=== PATIENT | female | born 1990 | race Caucasian/White ===

== ENCOUNTER 2016-10-08 17:24 | Observation (INO) | payer BC ==
[2016-10-08] MEDS: RHO(D) IMMUNE GLOBULIN 300 MCG DISP.SYRIN IM ONE (17:49)
[2016-10-08] MEDS: ACETAMINOPHEN 500 MG TABLET PO ONE (19:55)
[2016-10-08 21:59] LABS: Hematocrit 36.8 % (37.0-47.0); Hemoglobin 12.2 gm/dL (12.5-16.0); Mean Cell Volume 93.4 fl (78-100); Mean Corpuscular Hgb Conc 33.2 g/dl (32-36); Mean Platelet Volume 11.5 fl (6.0-9.5); Neutrophil # 10.3 K/mm3 (1.3-6.0); Neutrophil % 73.6 % (42-75.0); Platelet Count 312 K/mm3 (150-450); Red Blood Count 3.94 M/mm3 (4.2-5.4)
[2016-10-08] MEDS ORDERED: metFORMIN HCL 500 MG TABLET ONE (23:24)
[2016-10-08] MEDS: metFORMIN HCL 500 MG TABLET PO ONE (23:34)
[2016-10-08] MEDS: DEXTROSE 5%-LACTATED RINGERS 1,000 ML IV PRN (23:35)
[2016-10-09] MEDS: ACETAMINOPHEN 325 MG TABLET PO PRN (02:03)
[2016-10-09 06:06] LABS: Hematocrit 31.9 % (37.0-47.0); Hemoglobin 10.6 gm/dL (12.5-16.0); Mean Cell Volume 91.9 fl (78-100); Mean Corpuscular Hemoglobin 30.5 pg (27-31); Mean Corpuscular Hgb Conc 33.2 g/dl (32-36); Mean Platelet Volume 10.5 fl (6.0-9.5); Neutrophil # 8.5 K/mm3 (1.3-6.0); Neutrophil % 69.5 % (42-75.0); Platelet Count 256 K/mm3 (150-450); Red Blood Count 3.47 M/mm3 (4.2-5.4); White Blood Count 12.3 K/mm3 (4.0-10.5)
[2016-10-09 07:19] VITALS: BP 138/61
== END 2016-10-09 07:25 | disposition home or self-care (01) ==
LOC: OBCLINIC 17:24 → MERGE 22:20 → OB 22:20
PROVIDERS: ADMIT Obstetrics & Gynecology; ATTEND Obstetrics & Gynecology
DX: S70.02XA Contusion of left hip, initial encounter (principal); S30.0XXA Contusion of lower back and pelvis, initial encounter; O24.112 Pre-existing type 2 diabetes mellitus, in pregnancy, second trimester; W10.9XXA Fall (on) (from) unspecified stairs and steps, initial encounter; Y92.008 Other place in unspecified non-institutional (private) residence as the place of occurrence of the external cause; E66.01 Morbid (severe) obesity due to excess calories; Z68.25 Body mass index [BMI] 25.0-25.9, adult; Z3A.22 22 weeks gestation of pregnancy
CPT/HCPCS: 36415; 59025; 85025; 85460; G0378; J2790

== ENCOUNTER → 2016-10-08 | Emergency (ER) | payer BC ==
[2016-10-08 16:38] VITALS: BP 151/77
--- NOTE | 2016-10-08 17:34 | ERNOTE ---
Trauma/Assault HPI - Narrative Date of Service: 10/08/16 - General Stated Complaint: 21 WEEKS . FALL DOWNSTAIRS Time Seen by Provider: 10/08/16 17:16 Source: patient - Immun/Allergies/Home Medications Immunizations: IMMUNIZATION HX Immunizations Up to Date Yes History of Influenza Vaccine Yes Hx Pneumococcal Vaccination Yes Allergies/Adverse Reactions: Allergies No Known Allergies Allergy (Verified 10/08/16 16:38) Home Medications: HOME MEDICATIONS Metformin HCl [Metformin HCl ER] 1,000 mg PO DAILY 07/26/16 [Last Taken Unknown] Ign405/Iron Fumarate/FA/Dss [ 19 Tablet] 1 each PO DAILY 07/26/16 [Last Taken Unknown] Insulin Glargine,Hum.rec.anlog [Lantus] 20 units SC HS 10/08/16 [Last Taken Unknown] - Pain Pain Score #1 Pain Score: 4 - History of Present Illness Date (Duration): 10/08/16 Location Occurred: Reports: home Pain Location: Reports: other - left lower back area, mid thoracic area Method of Injury: Reports: other - patient states she slipped on icey last step Severity: moderate Modifying Factors - (Improves): Reports: rest Modifying Factors - (Worsens): Reports: movement Loss of Consciousness: Reports: no loss of consciousness Associated Symptoms - Trauma: Reports: headache. Denies: confusion, dizziness, lightheadedness, seizures, slurred speech, trouble walking, vision changes, neck pain, chest pain, shortness of breath, abdominal pain, nausea, vomiting Review of Systems - Review of Systems Constitutional: Absent: recent illness, fever, chills, diaphoresis, weakness, fatigue, malaise EYE: Present: no symptoms reported. Absent: blurred vision, double vision ENT: Present: no symptoms reported Respiratory: Present: no symptoms reported. Absent: shortness of breath, cough Cardiology: Present: no symptoms reported. Absent: chest pain, palpitations, syncope, edema Gastrointestinal/Abdominal: Present: no symptoms reported. Absent: nausea, vomiting, abdominal pain Genitourinary: Present: no symptoms reported Musculoskeletal: Present: no symptoms reported Skin: Absent: rash Neurological: Present: no symptoms reported - Patient's Past Medical History Patient History - Medical: Diabetes Type 2 Patient History - Cancer: No Hx of Cancer Patient History - Surgical Procedures: Tubal Ligation, Other - Social History Smoking Status: Never smoker Physical Exam - Physical Exam General Appearance: Present: wd/wn, alert, no apparent distress Eye Exam: Normal inspection: bilateral, PERRL: bilateral Ears, Nose, Throat: Present: hearing grossly normal, normal pharynx. Absent: dry mucous membranes Neck: Present: normal inspection, nontender, supple, full range of motion Respiratory: Present: no respiratory distress, normal breath sounds, no accessory muscle use, chest nontender, lungs clear. Absent: chest tenderness Cardiovascular/Chest: Present: regular rate, rhythm, no murmur, normal peripheral pulses Peripheral Pulses: N=norm/S=strong/W=weak/B=bound/A=absent: Radial (R): Strong, Radial (L): Strong, Dorsalis-pedis (R): Strong, Dorsalis-pedis (L): Strong Gastrointestinal/Abdominal: Present: normal bowel sounds, nontender, nondistended, soft, no organomegaly Back Exam: Present: normal inspection, normal range of motion, CVA tenderness (L ), vertebral tenderness - mid thoracic area Extremity Exam: Present: normal inspection, non-tender, no edema, normal range of motion Neurological Exam: Present: oriented, normal mood/affect, no motor/sensory deficits Skin Exam: Present: normal color, warm/dry. Absent: diaphoresis, cyanosis ED Progress - Vital Signs Patient's Vital Signs:: I have reviewed the patient's vital signs. Vital Signs: Vital Signs 10/08/16 16:35 Temperature 36.7 C Pulse Rate 100 Respiratory 14 Rate Blood Pressure 151/77 O2 Sat by Pulse 99 Oximetry - Progress/Reassessment Chief Complaint: Fall Progress Note-Subjective: 10/08/16 17:34 patient examined and due to did not want to perform CT/xray. patient agrees to decision and wants to get upstairs to OB floor and fetus monitored. No abnormalities noted on full examination. Departure Clinical Impression: Lower back pain Qualifiers: Chronicity: acute Back pain laterality: left Sciatica presence: without sciatica Qualified Code(s): M54.5 - Low back pain Back pain Qualifiers: Back pain location: thoracic back pain Chronicity: acute Back pain laterality: midline Qualified Code(s): M54.6 - Pain in thoracic spine Qualifiers: Weeks of gestation: 22 weeks Qualified Code(s): Z3A.22 - 22 weeks gestation of - Departure Disposition: [facility] Condition: Good Instructions: Back Pain, Adult, [id number] Referrals: Bobby Murrell DO [Primary Care Provider] -
== END | disposition home or self-care (01) ==
LOC: ER 16:23 → MERGE 16:23
DX: M54.5 Low back pain (principal); M54.6 Pain in thoracic spine; Z3A.22 22 weeks gestation of pregnancy; W00.1XXA Fall from stairs and steps due to ice and snow, initial encounter; E11.9 Type 2 diabetes mellitus without complications

== ENCOUNTER 2016-11-15 12:51 | Emergency (ER) | payer BC ==
--- OUTSIDE RECORDS SUMMARY | 2016-11-15 13:32 | XMS REPORT | Continuity of Care Document ---
:1990 Author Organization [facility] ([facility]) Address [address] [place] [address] Phone [phone] Care Team Providers Name Role Phone Bobby Murrell Primary Care Provider [phone] Source Comments This disclosure is being made pursuant to the Care Everywhere program, applicable federal and state laws, and may not contain all informaitonavailable regarding this patient.[facility] ([facility]) Active Allergies and Adverse Reactions No Known Allergies Current Medications Prescription Sig. Disp. Refills Start Date End Date Status albuterol 90 Use 2 Puffs by Active mcg/Actuation inhalation every 6 inhaler hours as needed Take 2 tablets by Active multivitamin with mouth daily. 2 minerals PO gummies acetaminophen 325 mg Take 325 mg by Active tablet mouth every 4 hours as needed. traMADol 50 mg 12/08/2015 Active tablet oxyCODONE-acetaminop Take 1 tablet by 30 tablet 0 12/09/2015 Active hen 5-325 mg per mouth every 4 hours tablet as needed for pain. Do Not exceed 4000 mg of acetaminophen per 24 hours.. ibuprofen 600 mg Take 1 tablet (600 30 tablet 3 12/09/2015 Active tablet mg total) by mouth every 6 hours as needed for pain. letrozole 2.5 mg Take 2 tablets (5 10 tablet 2 02/09/2016 Active tablet mg total) by mouth daily. clomiPHENE 50 mg Take 2 tablets (100 10 tablet 3 05/02/2016 Active tablet mg total) by mouth daily. Take on days 3 through 7 of cycle. amoxicillin 500 mg 1 capsule 3 times 06/16/2016 Active capsule daily. nitrofurantoin Take 1 capsule (100 10 capsule 0 06/22/2016 Active (MACROBID) 100 mg mg total) by mouth capsule 2 times daily. Active Problems Problem Noted Date with history of infertility in first trimester 06/21/2016 Difficult airway for intubation 12/09/2015 Ectopic , tubal 12/09/2015 Miscarriage 11/24/2015 Oxygen desaturation 07/02/2015 Obesity, Class III, BMI 40-49.9 (morbid obesity) 12/31/2014 Female infertility of unspecified origin 12/31/2014 Resolved Problems Problem Noted Date Resolved Date Abnormal uterine bleeding (AUB) 06/02/2015 11/24/2015 Endometrial polyp 12/31/2014 11/24/2015 Immunizations Name Dates Previously Given Next Due Rho (D) Immune Globulin, IM (Rhogam) 11/26/2015 Social History Tobacco Use Types Packs/Day Years Used Date Never Smoker Smokeless Tobacco: Never Used Alcohol Use Drinks/Week oz/Week Comments Yes Social Last Filed Vital Signs Vital Sign Reading Time Taken Blood Pressure 127/84 06/21/2016 1:18 PM CDT Pulse 103 06/21/2016 1:18 PM CDT Temperature 37.3 C (99.1 F) 06/21/2016 1:18 PM CDT Respiratory Rate 16 12/09/2015 8:45 PM CDT Height 1.54 m (5' 0.63") 12/27/2015 11:26 AM CDT Weight 103.6 kg (228 lb 6.3 oz) 06/21/2016 1:18 PM CDT Body Mass Index 43.68 06/21/2016 1:18 PM CDT Oxygen Saturation 92% 12/09/2015 7:30 PM CDT Plan of Care Health Maintenance Due Date Last Done Comments Hepatitis B Vaccine (1 of 3 - Primary Series) 1990 HPV Vaccine (1 of 3 - Female/Unknown 3 Dose Series) 2000 Tdap Vaccine 2000 Cervical Cancer Screening 2007 MMR Vaccine 2007 Td Vaccine 2007 Varicella Vaccine (1 of 2 - Adult - No Evidence of 2007 Immunity) Influenza Vaccine: Seasonal (#1) 04/24/2016 Lipid Disorder Screening 06/02/2020 06/02/2015 Results from Last 3 Months Not on file
--- NOTE | 2016-11-15 13:37 | ERNOTE ---
Medical Problem HPI - Narrative Date of Service: 11/15/16 - General Chief Complaint: Nausea/Vomiting Time Seen by Provider: 11/15/16 13:20 Source: patient Exam Limitations: no limitations - Immun/Allergies/Home Medications Immunizations: IMMUNIZATION HX Immunizations Up to Date Yes History of Influenza Vaccine Yes Hx Pneumococcal Vaccination Yes Allergies/Adverse Reactions: Allergies No Known Allergies Allergy (Verified 11/15/16 13:03) Home Medications: HOME MEDICATIONS Metformin HCl [Metformin HCl ER] 1,000 mg PO BID 07/26/16 [Last Taken 10/08/16 10:00] Vpi773/Iron Fumarate/FA/Dss [ 19 Tablet] 1 each PO DAILY 07/26/16 [Last Taken 10/08/16 09:00] Ferrous Sulfate [Iron] 325 mg PO DAILY 10/08/16 [Last Taken 10/07/16 2100] Insulin Glargine,Hum.rec.anlog [Lantus] 20 units SC HS 10/08/16 [Last Taken 19:35] - History of Present History Narrative: Pt. comes in with intermittent fever, nausea, vomiting, sinus congestion, PND, rhinorrhea, and sore throat for three days. Pt. states that she has been able to hold down some fluids but has not eaten much. Pt. is concerned as she is 27 weeks with oligohydramnios. Pt. denies any prehospital treatment. Review of Systems - Review of Systems Constitutional: Present: fever, fatigue, malaise. Absent: chills, diaphoresis, weakness, decreased activity level EYE: Present: no symptoms reported ENT: Present: nose pain, nose congestion, nasal drainage Respiratory: Present: cough. Absent: shortness of breath, wheezing Cardiology: Absent: chest pain, palpitations, edema Gastrointestinal/Abdominal: Present: nausea, vomiting. Absent: diarrhea, abdominal pain Musculoskeletal: Present: no symptoms reported. Absent: back pain, joint pain Skin: Present: no symptoms reported Neurological: Present: headache. Absent: dizziness/light-headedness, numbness, tingling All Other Systems: All systems neg except as marked - Patient's Past Medical History Patient History - Medical: No pertinent hx Patient History - Cardiac/Respiratory: No pertinent hx Patient History - Cancer: No Hx of Cancer Patient History - Surgical Procedures: D & C, Other - Social History Smoking Status: Never smoker Have you smoked in the past 12 months: No - Immunizations Immunizations Up to Date: Yes Hx Pneumococcal Vaccination: Yes History of Influenza Vaccine: Yes Physical Exam - Physical Exam General Appearance: Present: wd/wn, alert, no apparent distress Eye Exam: Normal inspection: bilateral, PERRL: bilateral, EOMI: bilateral Ears, Nose, Throat: Present: nasal congestion, sinus pain/drainage, pharyngeal erythema. Absent: abnormal TM (R), abnormal TM (L) Neck: Present: normal inspection, nontender. Absent: lymphadenopathy (R), lymphadenopathy (L) Respiratory: Present: no respiratory distress, normal breath sounds, no accessory muscle use, chest nontender, lungs clear Cardiovascular/Chest: Present: regular rate, rhythm, no murmur, normal peripheral pulses Gastrointestinal/Abdominal: Present: normal bowel sounds, nontender, nondistended, soft, no organomegaly Back Exam: Present: normal inspection, normal range of motion, no CVA tenderness , no vertebral tenderness Extremity Exam: Present: normal inspection, non-tender, no edema, normal range of motion Neurological Exam: Present: alert, oriented, normal mood/affect, no motor/ sensory deficits Skin Exam: Present: warm/dry, pallor. Absent: skin rash ED Progress - Date and Time Seen: Date and Time: 11/15/16 14:[address] menjivar and as pt. is doing well enough to hold down fluids will send pt. home to follow up with him next week. Will recommend pt. start leydi and vitamin B6 for nausea. - Results and Orders Patient's Lab Results:: I have reviewed the patient's lab results. - Vital Signs Patient's Vital Signs:: I have reviewed the patient's vital signs. Vital Signs: Vital Signs 11/15/16 13:00 Temperature 36.5 C Pulse Rate 119 H Respiratory 16 Rate Blood Pressure 143/85 O2 Sat by Pulse 95 Oximetry - Progress/Reassessment Chief Complaint: Nausea/Vomiting Progress:: Unchanged Departure - Departure Clinical Impression: Acute gastroenteritis Disposition: Home self-care Condition: Good Instructions: Viral Gastroenteritis, Adult, [id number] Additional Instructions: Please take Leydi root and 25 mg of B6 every eight hours and if this is not effective may use unisom 12.5 mg in addition to the vitamin B6 and leydi root.
[2016-11-15 13:55] LABS: Hematocrit 34.4 % (37.0-47.0); Hemoglobin 11.4 gm/dL (12.5-16.0); Mean Cell Volume 91.2 fl (78-100); Mean Corpuscular Hemoglobin 30.2 pg (27-31); Mean Corpuscular Hgb Conc 33.1 g/dl (32-36); Mean Platelet Volume 10.3 fl (6.0-9.5); Neutrophil # 10.2 K/mm3 (1.3-6.0); Neutrophil % 79.4 % (42-75.0); Platelet Count 310 K/mm3 (150-450); Red Blood Count 3.77 M/mm3 (4.2-5.4); Red Cell Distribution Width 13.3 % (11.5-14.0); White Blood Count 12.8 K/mm3 (4.0-10.5)
[2016-11-15 13:59] LABS: Urine Bilirubin Negative (NEGATIVE); Urine Blood Negative /ul (NEGATIVE); Urine Ketone Negative (NEGATIVE); Urine Nitrite Negative (NEGATIVE); Urine Protein Negative (NEGATIVE); Urine Urobilinogen Normal (NORMAL); Urine pH 7.5 pH (5.0-7.0)
[2016-11-15 14:03] LABS: Albumin * 2.5 gm/dl (3.4-5.0); Anion Gap 15.2 mmol/L (6.8-13.8); BUN/Creatinine Ratio 7.1 (9.0-21.6); Bilirubin, Total 0.3 mg/dL (0.0-1.1); Ca. Corrected For Albumin 9.7 mg/dL (8.4-10.2); Calcium * 8.8 mg/dL (7.9-10.9); Carbon Dioxide 25.6 mmol/L (24-32.6); Potassium 3.8 mmol/L (3.4-4.6)
[2016-11-15 14:12] LABS: Urine Appearance Clear; Urine Bacteria TRACE; Urine Color Yellow; Urine RBC None Seen /hpf (0-5); Urine WBC None Seen /hpf (0-5)
[2016-11-15] MEDS ORDERED: NORMAL SALINE 1,000 ML IV ONE (14:27)
[2016-11-15 14:45] VITALS: BP 130/70
== END 2016-11-15 16:14 | disposition home or self-care (01) ==
LOC: ER 12:51
DX: K52.9 Noninfective gastroenteritis and colitis, unspecified (principal); O41.02X0 Oligohydramnios, second trimester, not applicable or unspecified; Z3A.27 27 weeks gestation of pregnancy

== ENCOUNTER 2017-01-15 08:55 | Inpatient (IN) | payer BC ==
--- OUTSIDE RECORDS SUMMARY | 2017-01-15 09:00 | XMS REPORT | Continuity of Care Document ---
:1990 Author Organization [facility] ([facility]) [place] [address] Phone [phone] Care Team Providers Name Role Phone Bobby Murrell Primary Care Provider [phone] Source Comments This disclosure is being made pursuant to the Care Everywhere program, applicable federal and state laws, and may not contain all informaitonavailable regarding this patient.[facility] ([facility]) Active Allergies and Adverse Reactions No Known Allergies Current Medications Prescription Sig. Disp. Refills Start Date End Date Status albuterol 90 Use 2 Puffs by Active mcg/Actuation inhaler inhalation every 6 hours as needed multivitamin Take 2 tablets by Active with minerals PO mouth daily. 2 gummies ferrous sulfate 325 mg Take 325 mg by mouth Active (65 mg iron) tablet daily. SUPPLY FREESTYLE LITE Active test strips metFORMIN 1,000 mg Take 1,000 mg by Active tablet mouth 2 times daily with meals. Active Problems Problem Noted Date with history of infertility in first trimester 06/21/2016 Difficult airway for intubation 12/09/2015 Ectopic , tubal 12/09/2015 Miscarriage 11/24/2015 Oxygen desaturation 07/02/2015 Obesity, Class III, BMI 40-49.9 (morbid obesity) 12/31/2014 Female infertility of unspecified origin 12/31/2014 Currently Estimated Date of Delivery Comments Yes 02/13/2017 Based on Ultrasound Resolved Problems Problem Noted Date Resolved Date Abnormal uterine bleeding (AUB) 06/02/2015 11/24/2015 Endometrial polyp 12/31/2014 11/24/2015 Most Recent Encounters Date Type Specialty Providers Description 12/14/2016 Office Visit Maternal Juana Tesfaye, Chief Comp: Patient Medicine DO Reported Reason For Tammy Knutson Visit [facility] 12/14/2016 Hospital Encounter Obstetrics Juana Tesfaye, Dx: Abnormal DO ultrasonic finding on screening of mother 12/14/2016 Office Visit Maternal Juana Tesfaye Dx: Obesity, Class Medicine DO III, BMI 40-49.9 (morbid obesity) (Primary Dx) 12/07/2016 Hospital Encounter Patient Services 12/07/2016 Telephone Obstetrics Nicol Milner, Chief Comp: MD Consultation 12/07/2016 Telephone Maternal Marisol Nava Jackelin, Dx: Abnormal Medicine RN ultrasonic finding on screening of mother (Primary Dx) Immunizations Name Dates Previously Given Next Due Rho (D) Immune Globulin, IM (Rhogam) 11/26/2015 Social History Tobacco Use Types Packs/Day Years Used Date Former Smoker Smokeless Tobacco: Never Used Alcohol Use Drinks/Week oz/Week Comments No Last Filed Vital Signs Vital Sign Reading Time Taken Blood Pressure 128/70 12/14/2016 1:49 PM CDT Pulse 94 12/14/2016 1:49 PM CDT Temperature 37.2 C (99 F) 12/14/2016 1:49 PM CDT Respiratory Rate 16 12/09/2015 8:45 PM CDT Height 1.562 m (5' 1.5") 12/14/2016 1:49 PM CDT Weight 114.5 kg (252 lb 6.8 oz) 12/14/2016 1:49 PM CDT Body Mass Index 46.93 12/14/2016 1:49 PM CDT Oxygen Saturation 92% 12/09/2015 7:30 PM CDT Plan of Care Health Maintenance Due Date Last Done Comments Hepatitis B Vaccine (1 of 3 - Primary Series) 1989 Tdap Vaccine 2000 Cervical Cancer Screening 2007 MMR Vaccine 2007 Td Vaccine 2007 Varicella Vaccine (1 of 2 - Adult - No Evidence of 2007 Immunity) Pneumococcal Vaccine (1 of 1 - PPSV23) 2008 Influenza Vaccine: Seasonal (Season Ended) 2017 Lipid Disorder Screening 06/02/2020 06/02/2015 Results from Last 3 Months BLASTER HELPER/ DIAGNOSIS ULTRASOUND (12/14/2016 1:46 PM) Narrative Obstetric Ultrasound Report Detailed Survey Referral from: Dr. Bobby Murrell [place] [address] Department of Obstetrics & Gynecology [place], [id number] [address] [place], [place] [address]kins [facility] [place], [id number] OB Clinic IVF/ Endocrine PATIENT INFORMATION: Name: DYANA DARNELL#: [id number] Age:26 y/oExam Date: 12/14/2016 :1990Visit #: 7 LMP:04/29/2016Location: Diagnosis & Treatment Unit # Fetuses: 1 INDICATION:Oligo and downward richelle of EFW noted locally. Check growth and anatomy. DATING: Assigned GA GA by LMPGA by US(US)URSULA 32 5/7 wks 29 0/7 wks 31 2/7 wks02/13/17 BIOMETRY: BPD: 66.5 mm26 6/7 wksHC:264.9 mm 28 6/7 wks(<3%) (<3%) Femur: 59.6 mm31 0/7 wksAC:253.7 mm 29 4/7 wks(14%) (43%) EFW: 1439 gms3 lbs 3 oz (24%) Lat Ventricles: 5.2 mm Cisterna Magna: 4.63 mm Nasal Bone: Present-9.9 mm Heart Rate: 160 bpm FL/AC:0.23 HL/BPD: 0.75 FL/BPD: 0.89 Humerus:50.5 mm29 4 (22%) PRESENTATION/CORD/PLACENTA/FLUID/CERVIX: Presentation: Cephalic Umbilical Cord: 3 Vessel Cord.Suboptimal visualization of insertion into the placenta. Placenta: Anterior.There Is No Evidence Of Placenta Previa. Amniotic Fluid: Maximum Vertical Pocket=43 mm.Subjective AF Volume : Normal. (GTS=261 mm) ANATOMICAL SURVEY: Normal ------ Lateral Ventricles Cerebellum Cisterna Magna Profile Nose Lips Cervical Spine Thoracic Spine Lumbar Spine Sacrum Four Chamber ViewRVOT LVOT Cardiac [place] Cardiac Position Heart Rate StomachKidney - Left Kidney - Right Bladder Forearm - RightLower Leg - Left Lower Leg - RightFoot - Right Suboptimal Palate Aortic Arch Ductal ArchIVC SVC Diaphragm Ventral Wall Forearm - Left Hand - LeftHand - Right Foot - Left Abnormal -------- None identified TARGETED CARDIAC: Ductal Arch: Suboptimal IVC: Suboptimal SVC: Suboptimal COMPUTER SALESPERSON RETAIL FINDINGS: Ovaries:Left:Not Seen Right: Not Seen EFW Summary Table Exam DateFetus #EFW Percentile ------ - 24 % AMNIOTIC FLUID VOLUME: NORMALTotal SHELLY: 143 mm.Subjective AF Volume: Normal. Maximum Vertical Pocket:43 mm CERVIX: Visualized COMMENTS: I attest to having personally viewed the images and my comments and impression are as follows: The exam was limited by maternal obesity in . The exam was limited due to the late gestational age. IUP consistent with given URSULA. Some of the anatomy was suboptimally visualized due to late gestational age and maternal body habitus. Within the limits of ultrasound, no structural anomalies were seen. Appropriate fluid. The BPD and HC measure < 3% however is within 2 standard deviations from the mean. Consultation: Thank you for allowing us to care for your patient, Dyana Chacon. As you know, she is a 26 y.o. currently at 31w2d gestation.She has been referred due to Type II diabetes mellitus, "down-trending growth" and oligohydramnios.Her is otherwise uncomplicated. She had low risk serum screening.She presents to the Diagnosis and Treatment Unit at the [facility] today for detailed anatomic survey and MFM consultation. Today's ultrasound confirms a single viable intrauterine consistent with previously assigned gestational age. The growth and amniotic fluid volume are normal. There are no structural abnormalities noted within the limits of ultrasound. The ultrasound findings that are noted above were discussed with the patient. We then spent an additional 15 minutes in face to face time with the patient, of which more than 50% of that time was in counseling and/or coordination of care. The issues we discussed are as follows: The measurements are within normal limits. Both the HC and BPD measure <3%, but are not >3 standard deviations from the mean. We counseled the patient that this is considered to be within the range of normal variation and is not associated with adverse outcome. The is complicated by Type II DM. The patient is currently managed by Dr. Murrell, her OB in [place]. Her hemoglobin A1C in the beginning of was 5.7%. She is currently taking Metformin 1000 mg BID and NPH 48 units qhs. She reports fasting blood sugars are typically in the 70s-80s and one hour postprandial blood sugars are 110s-130s. We had a discussion regarding the importance of diabetic management in and we reviewed the complications that can develop in pregnancies of patients with Type II diabetes. There is increased risk for polyhydramnios, hypertensive disorders, altered growth, delivery, complications and stillbirth. We reviewed that the risk for developing hypertensive disorders of , including preeclampsia, is increased in patients with pre- exisiting diabetes. It will be important to monitor blood pressure and to screen for proteinuria as the progresses. We explained growth can be accelerated or delayed depending on the presence or absence of maternal vascular disease as well as maternal glycemic control; therefore, we recommend tight glycemic control and serial growth ultrasounds every 4 weeks, which can be done locally. Because of the increased risk of stillbirth, we recommend testing with weekly non-stress tests beginning at 32 weeks and plan for delivery in the 39th week of gestation.If the has suspected macrosomia, which can still happen despite good glycemic control, there is an increased risk of maternal and trauma.Elective section for estimated weight in excess of 4500 grams at the time of delivery should be offered due to increased risk for failed vaginal delivery and shoulder dystocia. We also discussed potential complications including hypoglycemia, seizures and respiratory distress syndrome, which may necessitate admission to the NICU. The patient currently demonstrates reasonable glycemic control. We reviewed that blood sugar goals include fasting<95 and one hour postprandial <140. Regardless of dietary modification, it is not uncommon for insulin requirements to increase as progresses due to increasing insulin resistance. The patient was encouraged to maintain weekly contact with her provider for blood sugar review and insulin adjustments. It was a pleasure seeing your patient in our Diagnosis and Treatment unit today. Thank you for allowing us to participate in her care. The patient was scheduled for follow up ultrasound in 4 weeks, which can be done locally. Please do not hesitate to call our clinic with any questions or concerns. Attending Staff Teaching Statement: I have interviewed the patient, reviewed her records and ultrasound images, and confirmed the pertinent findings.I have discussed the case with the fellow and agree with the findings and plan as documented. Dr. Juana Tesfaye MD ([id number]) Dr. Loretta Shirley MD [employer] Ten[employer]: Maryellen Bangura RDMS,RVT Procedure Note Sid, Incoming Imaging Results - SunDec 18, 2016 4:49 PM CDT Obstetric Ultrasound Report Detailed Survey Referral from: Dr. Bobby Murrell [facility] [address] Department of Obstetrics &[place] [address] [address] [employer] [place], [place] OB Clinic IVF/ Endocrine PATIENT INFORMATION: Name: DYANA CHACON MR#: [id number] Age: 26 y/o Exam Date: 12/14/2016 : 1990 Visit #: 7 LMP: 04/29/2016 Location: Diagnosis & Treatment Unit # Fetuses: 1 INDICATION: Oligo and downward richelle of EFW noted locally. Check growth and anatomy. DATING: Assigned GA GA by LMP GA by US (US) URSULA 32 5/7 wks 29 0/7 wks 31 2/7 wks 02/13/17 BIOMETRY: BPD: 66.5 mm 26 6/7 wks HC: 264.9 mm 28 6/7 wks(<3%) (<3%) Femur: 59.6 mm 31 0/7 wks AC: 253.7 mm 29 4/7 wks(14%) (43%) EFW: 1439 gms 3 lbs 3 oz (24%) Lat Ventricles: 5.2 mm Cisterna Magna: 4.63 mm Nasal Bone: Present-9.9 mm Heart Rate: 160 bpm FL/AC: 0.23 HL/BPD: 0.75 FL/BPD: 0.89 Humerus: 50.5 mm 294 (22%) PRESENTATION/CORD/PLACENTA/FLUID/CERVIX: Presentation: Cephalic Umbilical Cord: 3 Vessel Cord. Suboptimal visualization of insertion into the placenta. Placenta: Anterior. There Is No Evidence Of Placenta Previa. Amniotic Fluid: Maximum Vertical Pocket=43 mm. Subjective AFVolume: Normal. (DEZ=400 mm) ANATOMICAL SURVEY: Normal ------ Lateral Ventricles Cerebellum Cisterna Magna Profile Nose Lips Cervical Spine Thoracic Spine Lumbar Spine Sacrum Four Chamber View RVOT LVOT Cardiac [place] Cardiac Position Heart Rate Stomach Kidney - Left Kidney - Right Bladder Forearm - Right Lower Leg - Left Lower Leg - Right Foot - Right Suboptimal Palate Aortic Arch Ductal Arch IVC SVC Diaphragm Ventral Wall Forearm - Left Hand - Left Hand - Right Foot - Left Abnormal -------- None identified TARGETED CARDIAC: Ductal Arch: Suboptimal IVC: Suboptimal SVC: Suboptimal COMPUTER SALESPERSON RETAIL FINDINGS: Ovaries: Left: Not Seen Right: Not Seen EFW Summary Table Exam Date Fetus # EFW Percentile --------- ------- ---- 12/14/16 1 1439 24 % AMNIOTIC FLUID VOLUME: NORMAL Total SHELLY: 143 mm. Subjective AF Volume: Normal. Maximum Vertical Pocket: 43 mm CERVIX: Visualized COMMENTS: I attest to having personally viewed the images and my comments and impression are as follows: The exam was limited by maternal obesity in . The exam was limited due to the late gestational age. IUP consistent with given URSULA. Some of the anatomy was suboptimally visualized due to late gestational age and maternal body habitus. Within the limits of ultrasound, no structural anomalies were seen. Appropriate fluid. The BPD and HC measure < 3% however is within 2 standard deviationsfrom the mean. Consultation: Thank you for allowing us to care for your patient, Dyana Chacon. As you know, she is a 26 y.o. currently at 31w2d gestation.She has been referred due to Type II diabetes mellitus, "down-trendingfetal growth" and oligohydramnios. Her is otherwise uncomplicated. She had low risk serum screening. She presents to the Diagnosis and Treatment Unit at the [facility] today for detailedanatomic survey and MFM consultation. Today's ultrasound confirms a single viable intrauterine consistent with previously assigned gestational age. The growth and amniotic fluid volume are normal. There are no structural abnormalities noted within the limits of ultrasound. The ultrasound findings that are noted above were discussed with the patient. We then spent an additional 15 minutes in face to face time with the patient, of which more than 50% of that time was in counseling and/or coordination of care. The issues we discussed are as follows: The measurements are within normal limits. Both the HC and BPD measure <3%, but are not >3 standard deviations from the mean. We counseled the patient that this is considered to be within the range of normal variation and is not associated with adverse outcome. The is complicated by Type II DM. The patient is currently managed by Dr. Murrell, her OB in [place]. Her hemoglobin A1C in the beginning of was 5.7%. She is currently taking Metformin 1000 mg BID and NPH 48 units qhs. She reports fasting blood sugars are typically in the 70s-80s and one hour postprandial blood sugars are 110s-130s. We had a discussion regarding the importance of diabetic management in and we reviewed the complications that can develop in pregnancies of patients with Type II diabetes. There is increased risk for polyhydramnios, hypertensive disorders, alteredfetal growth, delivery, complications and stillbirth. We reviewed that the risk for developing hypertensive disorders of , including preeclampsia, is increased in patients with pre- exisiting diabetes. It will be important to monitor blood pressure and to screen for proteinuria as the progresses. We explained growth can be accelerated or delayed depending on the presence or absence of maternal vascular disease as well as maternal glycemic control; therefore, we recommend tight glycemic control and serial growth ultrasounds every 4 weeks, which can be done locally. Because of the increased risk of stillbirth, we recommend testing with weekly non-stress tests beginning at 32 weeks and plan for delivery in the 39th week of gestation. If the has suspected macrosomia, which can still happen despite good glycemic control, there is an increased risk of maternal and trauma. Electivecesarean section for estimated weight in excess of 4500 grams at the time of delivery should be offered due to increased risk for failed vaginal delivery and shoulder dystocia. We also discussed potential complications including hypoglycemia, seizures and respiratory distress syndrome, which may necessitate admission to the NICU. The patient currently demonstrates reasonable glycemic control. We reviewed that blood sugar goals include fasting<95 and one hour postprandial <140. Regardless of dietary modification, it is not uncommon for insulin requirements to increase as progresses due to increasing insulin resistance. The patient was encouraged to maintain weekly contact with her provider for blood sugar review and insulin adjustments. It was a pleasure seeing your patient in our Diagnosis and Treatment unit today. Thank you for allowing us to participate in her care. The patient was scheduled for follow up ultrasound in 4 weeks, which can be done locally. Please do not hesitate to call our clinic with any questions or concerns. Attending Staff Teaching Statement: I have interviewed the patient, reviewed her records and ultrasound images, and confirmed the pertinent findings. I have discussed the case with the fellow and agree with the findings and plan as documented. Dr. Juana Tesfaye MD ([id number]) Dr. Loretta Shirley MD [employer] Ten[employer]: Maryellen Bangura RDMS,RVT
[2017-01-15] MEDS ORDERED: METOCLOPRAMIDE HCL 5 MG/ML VIAL IV PRN ×2 (11:21→19:39)
[2017-01-15] MEDS ORDERED: diphenhydrAMINE HCL 50 MG/ML VIAL IV ONE (11:21)
[2017-01-15] MEDS: RINGERS SOLUTION,LACTATED 1,000 ML IV PRN (11:29)
[2017-01-15 11:57] LABS: Random Urine Total Protein 23.3 mg/dL (0-12)
[2017-01-15 12:16] LABS: Hematocrit 33.6 % (37.0-47.0); Hemoglobin 11.2 gm/dL (12.5-16.0); Mean Cell Volume 90.3 fl (78-100); Mean Corpuscular Hemoglobin 30.1 pg (27-31); Mean Corpuscular Hgb Conc 33.3 g/dl (32-36); Mean Platelet Volume 10.6 fl (6.0-9.5); Neutrophil # 8.2 K/mm3 (1.3-6.0); Neutrophil % 72.9 % (42-75.0); Platelet Count 278 K/mm3 (150-450); Red Blood Count 3.72 M/mm3 (4.2-5.4); Red Cell Distribution Width 14.6 % (11.5-14.0); White Blood Count 11.3 K/mm3 (4.0-10.5)
[2017-01-15 12:30] LABS: Albumin * 2.1 gm/dl (3.4-5.0); Anion Gap 13.7 mmol/L (6.8-13.8); BUN/Creatinine Ratio 13.5 (9.0-21.6); Bilirubin, Total 0.2 mg/dL (0.0-1.1); Ca. Corrected For Albumin 9.6 mg/dL (8.4-10.2); Calcium * 8.4 mg/dL (7.9-10.9); Carbon Dioxide 25.2 mmol/L (24-32.6); Potassium 3.9 mmol/L (3.4-4.6); Total Protein 6.2 gm/dL (6.2-8.2)
[2017-01-15] MEDS ORDERED: LIDOCAINE HCL 50 ML VIAL PERI PRN (12:32)
[2017-01-15] MEDS ORDERED: ONDANSETRON HCL/PF 2 MG/ML VIAL IV PRN (12:32)
[2017-01-15] MEDS ORDERED: PENICILLIN G POTASSIUM 5 MILLIONUNT in DEXTROSE 5 % IN WATER 100 ML IV ONE ×2 (12:32)
[2017-01-15] MEDS ORDERED: DEXTROSE 5%-LACTATED RINGERS 1,000 ML IV PRN (12:32)
[2017-01-15] MEDS ORDERED: INSULIN REGULAR HUMAN REC 100 UNITS in NORMAL SALINE 100 ML IV PRN (12:32)
[2017-01-15] MEDS ORDERED: MISOPROSTOL 100 MCG TABLET VG PRN (12:32)
[2017-01-15] MEDS ORDERED: OXYTOCIN/DEXTROSE 5%-WATER 30 UNITS/500 ML BAG IV ONE (12:32)
--- OUTSIDE RECORDS SUMMARY | 2017-01-15 12:35 | XMS REPORT | Continuity of Care Document ---
:1990 Author Organization [facility] ([facility]) [place] [address] Phone [phone] Care Team Providers Name Role Phone Bobby Murrell Primary Care Provider [phone] Source Comments This disclosure is being made pursuant to the Care Everywhere program, applicable federal and state laws, and may not contain all informaitonavailable regarding this patient.[facility] ([facility]) Active Allergies and Adverse Reactions No [...] 06/02/2020 06/02/2015 Results from Last 3 Months TRADING MANAGER/ DIAGNOSIS ULTRASOUND (12/14/2016 1:46 PM) Narrative Obstetric Ultrasound Report Detailed Survey Referral from: Dr. Bobby Murrell [place] [address] Department of Obstetrics & Gynecology [place], [id number] [address] [place], [place] [address]kins [facility] [place], [id number] OB Clinic IVF/ Endocrine PATIENT INFORMATION: Name: DYANA DARNELL#: [id number] Age:26 y/oExam Date: 12/14/2016 :1990Visit #: 7 [...] Vertical Pocket=43 mm.Subjective AF Volume : Normal. (IZX=202 mm) ANATOMICAL SURVEY: Normal ------ Lateral Ventricles Cerebellum Cisterna Magna Profile Nose Lips Cervical Spine Thoracic Spine Lumbar Spine Sacrum Four Chamber ViewRVOT LVOT Cardiac [place] Cardiac Position Heart Rate StomachKidney - Left Kidney - Right Bladder Forearm - RightLower Leg - Left Lower Leg - RightFoot - Right Suboptimal Palate Aortic Arch Ductal ArchIVC SVC Diaphragm Ventral Wall Forearm - Left Hand - LeftHand - Right Foot - Left Abnormal -------- None identified TARGETED CARDIAC: Ductal Arch: Suboptimal IVC: Suboptimal SVC: Suboptimal DEVELOPMENT DISABILITY SPECIALIST FINDINGS: Ovaries:Left:Not Seen Right: Not Seen EFW [...] the Diagnosis and Treatment Unit at the [facility] today for detailed anatomic survey and MFM [...] managed by Dr. Murrell, her OB in [place]. Her hemoglobin A1C in the beginning of [...] Tesfaye MD ([id number]) Dr. Loretta Shirley MD [employer] Machine Feeder: Maryellen Bangura RDMS,RVT Procedure Note Sid, Incoming Imaging Results - SunDec 18, 2016 4:49 PM CDT Obstetric Ultrasound Report Detailed Survey Referral from: Dr. Bobby Murrell [facility] [address] Department of Obstetrics &[place] [address] [address] [place], [id number] OB Clinic IVF/ Endocrine PATIENT INFORMATION: Name: DYANA CHACON MR#: [id number] Age: 26 y/o Exam Date: 12/14/2016 : [...] Maximum Vertical Pocket=43 mm. Subjective AFVolume: Normal. (ETJ=651 mm) ANATOMICAL SURVEY: Normal ------ Lateral Ventricles Cerebellum Cisterna Magna Profile Nose Lips Cervical Spine Thoracic Spine Lumbar Spine Sacrum Four Chamber View RVOT LVOT Cardiac [place] Cardiac Position Heart Rate Stomach Kidney - Left Kidney - Right Bladder Forearm - Right Lower Leg - Left Lower Leg - Right Foot - Right Suboptimal Palate Aortic Arch Ductal Arch IVC SVC Diaphragm Ventral Wall Forearm - Left Hand - Left Hand - Right Foot - Left Abnormal -------- None identified TARGETED CARDIAC: Ductal Arch: Suboptimal IVC: Suboptimal SVC: Suboptimal DEVELOPMENT DISABILITY SPECIALIST FINDINGS: Ovaries: Left: Not Seen Right: Not [...] the Diagnosis and Treatment Unit at the [facility] today for detailedanatomic survey and MFM consultation. [...] managed by Dr. Murrell, her OB in [place]. Her hemoglobin A1C in the beginning of [...] Tesfaye MD ([id number]) Dr. Loretta Shirley MD [employer] Machine Feeder: Maryellen Bangura RDMS,RVT
[2017-01-15] MEDS ORDERED: MAGNESIUM SULFATE IN WATER 1,000 ML IV PRN (12:53)
[2017-01-15] MEDS ORDERED: MAGNESIUM SULFATE IN WATER 50 ML, MAGNESIUM SULFATE IN WATER 50 ML IV ONE ×2 (12:53)
[2017-01-15] MEDS: hydrALAZINE HCL 20 MG/ML VIAL IV PRN ×7 (13:06→20:11)
[2017-01-15] MEDS ORDERED: NIFEdipine 10 MG CAPSULE PO STA (15:06)
[2017-01-15] MEDS: PENICILLIN G POTASSIUM 2.5 MILLIONUNT in DEXTROSE 5 % IN WATER 100 ML IV SCH ×4 (16:29→20:25)
--- NOTE | 2017-01-15 17:43 | PN ---
Progess Note - Interim Narrative: 01/15/17 17:35 Patient complains of headache, catheter discomfort, and hot flashes Blood pressures improved after Procardia 10 mg by mouth 1 and 4 doses of hydralazine 5mg IV U.O. - >100ml/h, magnesium sulfate at 2 g per hour intravenously Blood sugar 67 FHT:150 baseline, minimum variability with occasional acceleration and occasional late deceleration Contractions q 2-4 min status post Cytotec 25 g at 1315 Cervix: /-3 Impression: Intrauterine at 35 6/7 weeks, Induction of labor for severe preeclampsia. Type 2 diabetes on insulin-well controlled. Asthma-mild, intermittent, stable. Morbid obesity with BMI of 51. GBS positive - status post 2 doses of penicillin IV. Plan: Continue present plan
[2017-01-15 17:46] LABS: Urine Ketone 50 mg/dL (NEGATIVE)
[2017-01-15] MEDS: ACETAMINOPHEN 325 MG TABLET PO PRN (17:49)
[2017-01-15] MEDS ORDERED: DEXTROSE 10% IV SCH ×2 (18:00)
[2017-01-15] MEDS ORDERED: SODIUM CHLORIDE IV SCH ×2 (18:00)
[2017-01-15] MEDS ORDERED: WATER IV SCH ×8 (18:00→19:45)
[2017-01-15] MEDS ORDERED: DEXTROSE IV SCH ×6 (19:30→19:45)
[2017-01-15] MEDS ORDERED: [UNRECOGNIZED DRUG - OTHER] IV SCH ×6 (19:30→19:45)
[2017-01-15] MEDS ORDERED: diphenhydrAMINE HCL 50 MG/ML VIAL IV PRN (19:41)
[2017-01-15] MEDS ORDERED: metFORMIN HCL 500 MG TABLET ONE (22:09)
[2017-01-15] MEDS ORDERED: NIFEdipine 10 MG CAPSULE PO ONE (23:00)
[2017-01-16 00:39] LABS: Urine Bilirubin Negative (NEGATIVE); Urine Blood 250 /ul (NEGATIVE); Urine Ketone Large mg/dL (NEGATIVE); Urine Nitrite Negative (NEGATIVE); Urine Protein 30 mg/dL (NEGATIVE); Urine Specific Gravity >=1.030 SP.GR. (1.005-1.010); Urine Urobilinogen Normal (NORMAL)
[2017-01-16 00:50] LABS: Urine Appearance Slightly Cloudy; Urine Color Yellow
[2017-01-16] MEDS ORDERED: HUM INSULIN NPH/REG INSULIN HM 100 UNIT/ML VIAL SC ONE (01:00)
[2017-01-16] MEDS: PENICILLIN G POTASSIUM 2.5 MILLIONUNT in DEXTROSE 5 % IN WATER 100 ML IV SCH ×6 (01:04→10:35)
[2017-01-16] MEDS: ACETAMINOPHEN 325 MG TABLET PO PRN (02:17)
[2017-01-16 03:33] LABS: Urine Bilirubin Negative (NEGATIVE); Urine Blood 250 /ul (NEGATIVE); Urine Ketone 15 mg/dL (NEGATIVE); Urine Nitrite Negative (NEGATIVE); Urine Protein 30 mg/dL (NEGATIVE); Urine Specific Gravity >=1.030 SP.GR. (1.005-1.010); Urine Urobilinogen Normal (NORMAL)
[2017-01-16 03:34] LABS: Urine Appearance Cloudy; Urine Color Yellow
[2017-01-16] MEDS ORDERED: hydrALAZINE HCL 20 MG/ML VIAL ONE (03:38)
[2017-01-16] MEDS: hydrALAZINE HCL 20 MG/ML VIAL IV PRN ×2 (03:40→04:12)
[2017-01-16] MEDS: RINGERS SOLUTION,LACTATED 1,000 ML IV PRN (04:25)
[2017-01-16] MEDS ORDERED: BUPIVACAINE HCL/0.9 % NACL/PF 250 ML EP PRN (05:02)
--- NOTE | 2017-01-16 05:06 | OR ---
Anesthesia Pre Procedure Eval Date of Service: 01/16/17 Pre Procedure Evaluation: Last Vital Signs Temp 37.1 C 01/15/17 14:00 Pulse 108 H 01/16/17 04:12 Resp 18 01/15/17 17:55 BP 173/81 01/16/17 04:12 Pulse Ox 98 01/15/17 17:55 O2 Oxygen Delivery Method Room Air Anesthesia Pre Procedure Evaluation Heart Rate:100 Blood Pressure:160/83 Termperature:37.1 Respiratory Rate:22 SaO2:98 DATE: 01/16/2017 TIME: 05 100 INDICATIONS: Active labor, labor pain PAST MEDICAL HISTORY: 2 patient in active labor requesting labor analgesia EXAM: Heart regular; lungs clear ASSESSMENT OF MEDICAL STATUS: Patient is a 4 cm dilatation requesting labor analgesia she has an appropriate candidate for labor analgesia, a provide some challenge as she is obese at over 50 BMI. PLANNED PROCEDURE: Combination spinal epidural for labor analgesia Home Medications: HOME MEDICATIONS Vec954/Iron Fumarate/FA/Dss [ 19 Tablet] 1 each PO DAILY 07/26/16 [Last Taken 01/09/17 08:00] metFORMIN HCL [Metformin HCl ER] 1,000 mg PO BID 07/26/16 [Last Taken 01/09/17 21:00] Ferrous Sulfate [Iron] 325 mg PO DAILY 10/08/16 [Last Taken 01/09/17 21:00] Acetaminophen [Tylenol] 650 mg PO Q4H PRN 12/23/16 [Last Taken 12/23/16 13:00] Ascorbic Acid [Vitamin C] 1,000 mg PO BID 12/23/16 [Last Taken 01/09/17 21:00] Insulin NPH Human Recom [Novolin N] 50 units SQ HS 12/23/16 [Last Taken 1 Day Ago] Magnesium Oxide [Magnesium] 250 mg PO DAILY 12/23/16 [Last Taken 01/09/17 08:00]
[2017-01-16] MEDS ORDERED: fentaNYL CITRATE/PF 50 MCG/ML AMPUL IT SCH (05:15)
--- NOTE | 2017-01-16 05:37 | OR ---
Anesthesia Procedure Note - Anesthesia Procedure Note Date of Service: 01/16/17 Narrative: Vital Signs - Last Taken Temp 37.1 C 01/15/17 14:00 Pulse 108 H 01/16/17 04:12 Resp 18 01/15/17 17:55 BP 173/81 01/16/17 04:12 Pulse Ox 98 01/15/17 17:55 O2 Oxygen Delivery Method Room Air 01/16/17 05:34 ANESTHESIA PROCEDURE NOTE Date of Procedure: 01/16/2017 Time of procedure: 5 AM. Performed by: SEVEN Flanagan CRNA, MSN Oyster Grower: [Honey Sofia RN]. Preprocedure diagnosis: Active labor, labor pain. Post procedure diagnosis: Same. Procedure: Labor Epidural Placement L3,4. Indications: Labor pain. Findings: See below. Details of the procedure: The patient was placed on the side of the bed in sitting position. The patient was prepped with DuraPrep and draped in a sterile fashion. Lidocaine 1% was infiltrated to the skin and subcutaneous tissues at the level of the L3 4 interspace. The epidural space was identified using a 18-gauge Tuohy needle with [id number] technique. Fentanyl 20 g was given intrathecally the intrathecal needle was then removed and the epidural catheter was threaded approximately 4 cm, the epidural needle was then removed, and after careful aspiration 3 mL of 1.5% lidocaine with 1-200,000 epinephrine was injected without change in maternal heart rate or sensorium. The catheter was then taped in place. EBL: Minimal. Fluids: N/A. Specimen: N/A. Post procedure condition: The patient tolerated the procedure well with good relief. No complications were noted. Thank you for this consultation. Cody Oliveira CRNA, [employer], MSN
[2017-01-16 07:17] LABS: Urine Bilirubin Negative (NEGATIVE); Urine Blood 250 /ul (NEGATIVE); Urine Ketone 15 mg/dL (NEGATIVE); Urine Nitrite Negative (NEGATIVE); Urine Protein 100 mg/dL (NEGATIVE); Urine Specific Gravity >=1.030 SP.GR. (1.005-1.010); Urine Urobilinogen Normal (NORMAL)
[2017-01-16 07:25] LABS: Urine Appearance Slightly Cloudy; Urine Color Red
--- NOTE | 2017-01-16 08:29 | PN ---
Progess Note - Interim Narrative: 01/16/17 08:27 Throughout the night patient required extra glucose and insulin to keep keep tones minimal. 3 additional doses of IV hydralazine required to maintain blood pressures below severe range. Spontaneous rupture of membranes around 3:15 this morning. Patient progressed rapidly after epidural placed at around 545 this morning. Urine output has remained adequate throughout the evening but is been dark and concentrated. Arrival at 7:30 this morning patient was complete and +3 and we began preparing for delivery.
--- NOTE | 2017-01-16 08:38 | OR ---
Operative Report - Dictated Report Narrative: Spontaneous vaginal delivery of viable female in ROB position at 0802 on 01/16/2017 with Apgars 9 and 9, weighing 2054 g. Cord clamping delayed approximately 1 minute Placenta delivered complete, intact, with three vessel cord Estimated blood loss: less than 50 ml Lacerations: None
[2017-01-16] MEDS ORDERED: [UNRECOGNIZED DRUG - OTHER] IV SCH ×2 (10:36)
[2017-01-16] MEDS ORDERED: DEXTROSE IV SCH ×2 (10:36)
[2017-01-16] MEDS ORDERED: GLYCERIN/WITCH HAZEL LEAF 40 APPL BOX TP PRN (10:36)
[2017-01-16] MEDS ORDERED: INSULIN REGULAR HUMAN REC 100 UNITS in NORMAL SALINE 100 ML IV PRN (10:36)
[2017-01-16] MEDS ORDERED: SENNOSIDES 8.6 MG TABLET PO PRN (10:36)
[2017-01-16] MEDS ORDERED: WATER IV SCH ×2 (10:36)
[2017-01-16] MEDS ORDERED: oxyCODONE HCL/ACETAMINOPHEN 1 TAB TABLET PO PRN ×2 (10:36)
[2017-01-16] MEDS ORDERED: BENZOCAINE/MENTHOL 81 SPRAY CAN TP PRN (10:36)
[2017-01-16] MEDS ORDERED: OXYTOCIN/DEXTROSE 5%-WATER 30 UNITS/500 ML BAG IV ONE (10:36)
[2017-01-16] MEDS ORDERED: ACETAMINOPHEN 325 MG TABLET PO PRN (10:36)
[2017-01-16] MEDS ORDERED: BISACODYL 10 MG SUPP.RECT RC PRN (10:36)
[2017-01-16] MEDS ORDERED: MAGNESIUM SULFATE IN WATER 1,000 ML IV PRN (10:36)
[2017-01-16] MEDS ORDERED: HYDROCORTISONE 30 APPL TUBE TP PRN (10:36)
[2017-01-16] MEDS ORDERED: ONDANSETRON HCL/PF 2 MG/ML VIAL IV PRN (10:36)
[2017-01-16] MEDS ORDERED: DEXTROSE 5%-LACTATED RINGERS 1,000 ML IV PRN (10:39)
[2017-01-16] MEDS: IBUPROFEN 800 MG TABLET PO PRN (10:56)
[2017-01-16] MEDS ORDERED: INSULIN LISPRO 100 UNITS/ML VIAL SC ONE (11:32)
[2017-01-16 12:54] LABS: Urine Appearance Bloody; Urine Bilirubin Negative (NEGATIVE); Urine Blood 250 /ul (NEGATIVE); Urine Color Red; Urine Ketone Negative (NEGATIVE); Urine Nitrite Negative (NEGATIVE); Urine Protein Negative (NEGATIVE); Urine Specific Gravity >=1.030 SP.GR. (1.005-1.010); Urine Urobilinogen Normal (NORMAL)
[2017-01-16] MEDS: DOCUSATE SODIUM 100 MG CAPSULE PO SCH (14:35)
[2017-01-16] MEDS ORDERED: RHO(D) IMMUNE GLOBULIN 300 MCG DISP.SYRIN IM ONE (17:13)
[2017-01-16] MEDS ORDERED: metFORMIN HCL 500 MG TABLET ONE (18:22)
[2017-01-17] MEDS: IBUPROFEN 800 MG TABLET PO PRN (00:33)
[2017-01-17] MEDS: DOCUSATE SODIUM 100 MG CAPSULE PO SCH ×3 (00:34→20:08)
--- NOTE | 2017-01-17 09:25 | PN ---
Subjective - Date and Time Seen Date: 01/17/17 Time: 09:22 Objective - Vitals Vitals: Last Vital Signs Temp 36.4 C L 01/17/17 06:45 Pulse 88 01/17/17 06:45 Resp 20 01/17/17 06:45 BP 145/78 01/17/17 06:45 Pulse Ox 98 01/17/17 05:40 Patient denies complaints. No preeclamptic signs or symptoms. Lochia wnl Abdomen - soft, nontender Uterus - firm, at umbilicus - 1 No calf tenderness Weight down from 120 kg to 117 kg today. Fasting blood sugar 76, 1 hour postprandial pending Impression: day #1 - s/p spontaneous vaginal delivery. Severe preeclampsia resolving. Diabetes-stable. Morbid obesity-stable Plan: Continue routine care. Continue to monitor blood sugar, blood pressures, and weight. - Abnormal Lab Findings Abnormal Lab Findings: Abnormal Lab Results 01/16/17 Range/Units 11:54 Urine Blood 250 H (NEGATIVE) /ul Cauti Physician Documentation - Urinary Catheter Management Urethral (Lilly) Date of Insertion: 01/15/17 Time of Insertion: 13:23 Date of Removal: 01/17/17 Time of Removal: 00:30
[2017-01-18] MEDS: IBUPROFEN 800 MG TABLET PO PRN ×3 (00:45→19:25)
[2017-01-18] MEDS: DOCUSATE SODIUM 100 MG CAPSULE PO SCH ×3 (07:48→21:11)
--- NOTE | 2017-01-18 09:23 | PN ---
Subjective - Date and Time Seen Date: 01/18/17 Time: 09:21 Objective - Vitals Vitals: Last Vital Signs Temp 36.9 C 01/18/17 06:56 Pulse 91 01/18/17 06:56 Resp 18 01/18/17 06:56 BP 157/75 01/18/17 08:58 Pulse Ox 98 01/18/17 06:56 Patient denies complaints. Lochia wnl Abdomen - soft, nontender Uterus - firm, at umbilicus - 2 No calf tenderness Impression: day #2 - s/p spontaneous vaginal delivery. Severe preeclampsia - resolved. Type 2 diabetes - stable. Asthma-stable. Morbid obesity. Plan: Routine discharge instructions with the addition of preeclampsia precautions. Patient is to follow-up in the office in 1 week for a blood pressure check. Patient is to check her blood sugars fasting and one-hour postprandial every other day until seen in the office. Encouraged to continue diabetic diet, regular exercise, and weight loss. Cauti Physician Documentation - Urinary Catheter Management Urethral (Lilly) Date of Insertion: 01/15/17 Time of Insertion: 13:23 Date of Removal: 01/17/17 Time of Removal: 00:30
[2017-01-18 23:38] VITALS: BP 155/80
== END 2017-01-18 23:50 | disposition home or self-care (01) | DRG 774 ==
LOC: RAD 08:55 → OBCLINIC 08:55 → OB 12:31
PROVIDERS: ADMIT Obstetrics & Gynecology; ATTEND Obstetrics & Gynecology
PROC: 10E0XZZ Delivery of Products of Conception, External Approach (ICD-10-PCS; principal; 2017-01-16)
PROC: 4A1H7CZ Monitoring of Products of Conception, Cardiac Rate, Via Natural or Artificial Opening (ICD-10-PCS; 2017-01-16)
PROC: 10H073Z Insertion of Monitoring Electrode into Products of Conception, Via Natural or Artificial Opening (ICD-10-PCS; 2017-01-16)
PROC: 3E0S3CZ (ICD-10-PCS; 2017-01-16)
DX: O13.4 Gestational [pregnancy-induced] hypertension without significant proteinuria, complicating childbirth (principal); O24.12 Pre-existing type 2 diabetes mellitus, in childbirth; Z68.42 Body mass index [BMI] 45.0-49.9, adult; O14.14 Severe pre-eclampsia complicating childbirth; O99.214 Obesity complicating childbirth; E66.01 Morbid (severe) obesity due to excess calories; E11.9 Type 2 diabetes mellitus without complications; O99.824 Streptococcus B carrier state complicating childbirth; J45.20 Mild intermittent asthma, uncomplicated; Z3A.36 36 weeks gestation of pregnancy; Z37.0 Single live birth; Z79.4 Long term (current) use of insulin
CPT/HCPCS: 36415; 59025; 76818; 76820; 80053; 81003; 82570; 84156; 85025; 85460; J2790

== ENCOUNTER 2017-06-13 06:59 | Emergency (ER) | payer BC ==
--- NOTE | 2017-06-13 07:08 | ERNOTE ---
ER Female HPI Stated Complaint: CRAMPING Presenting Symptoms: pelvic pain Source: patient Exam Limitations: no limitations Immunizations: IMMUNIZATION HX Immunizations Up to Date Yes History of Influenza Vaccine Yes Hx Pneumococcal Vaccination Yes Allergies/Adverse Reactions: Allergies No Known Allergies Allergy (Verified 06/13/17 07:08) Home Medications: HOME MEDICATIONS [id number]/Iron Fumarate/FA/Dss [ 19 Tablet] 1 each PO DAILY 07/26/16 [Last Taken 01/09/17 08:00] Ferrous Sulfate [Iron] 325 mg PO DAILY 10/08/16 [Last Taken 01/09/17 21:00] Acetaminophen [Tylenol] 650 mg PO Q4H PRN 12/23/16 [Last Taken 12/23/16 13:00] Ascorbic Acid [Vitamin C] 1,000 mg PO BID 12/23/16 [Last Taken 01/09/17 21:00] Magnesium Oxide [Magnesium] 250 mg PO DAILY 12/23/16 [Last Taken 01/09/17 08:00] Ibuprofen [Motrin] 200 - 800 mg PO Q6H PRN #100 tab 01/18/17 [Last Taken Unknown ] - History of Present Illness Narrative: Patient is a A1 that had a vaginal delivery in 12/2016. She has been till about a month ago, had been on a low dose controll pill that she forgot frequently and stopped a few weeks ago. She has PCOS and irregular periods, had a couple and some spotting since delivery. for about two weeks she has had lower abdominal cramping on and off. The pain has increased over the last two days and has been severe since this morning. She denies any bleeding nor any other associated symptoms. She had an ectopic in 2016, treated with surgery, she has been with the same partner for nine years, denies any vaginal discharge Date (Duration): 06/11/17 Timing: Present: constant Quality: Present: severe, cramping Onset Location: Present: suprapubic Radiation: Present: other - bilateral lower abdomen Activities at Onset: Present: none Sexual [place] History: Present: single partner. Absent: exposure to STD Associated Symptoms: Present: denies symptoms. Absent: fever/chills, nausea, dysuria, urinary frequency Prior Treatment: Absent: recently seen, currently on antibiotics Review of Systems - Review of Systems Constitutional: Absent: recent illness, fever ENT: Absent: nose congestion, sore throat Respiratory: Absent: shortness of breath, cough Cardiology: Absent: chest pain Gastrointestinal/Abdominal: Present: abdominal pain. Absent: nausea, vomiting, diarrhea Genitourinary: Present: See HPI. Absent: frequency, pain, dysuria Musculoskeletal: Present: no symptoms reported Skin: Absent: rash Neurological: Absent: headache Endocrine: Present: no symptoms reported - Patient's Past Medical History Patient History - Medical: Diabetes Type 2, Other - PCOS, severe preeclampsia Patient History - Cardiac/Respiratory: Hypertension - induced Patient History - Cancer: No Hx of Cancer Patient History - Surgical Procedures: D & C, Other LMP (females 10-50): unknown - Social History Living Situations: home Alcohol Use: none Drug Use: none - Immunizations Immunizations Up to Date: Yes Hx Pneumococcal Vaccination: Yes History of Influenza Vaccine: Yes Physical Exam - Physical Exam General Appearance: Present: wd/wn, alert, no apparent distress, obese Respiratory: Present: no respiratory distress, normal breath sounds, no accessory muscle use, lungs clear Cardiovascular/Chest: Present: regular rate, rhythm, no murmur Gastrointestinal/Abdominal: Present: normal bowel sounds, nondistended, soft, tenderness - lower abdomen, suprapubic, mininmal lateral Extremity Exam: Present: no edema Neurological Exam: Present: alert, oriented, normal mood/affect Skin Exam: Present: normal color, warm/dry ED Progress - Results and Orders Patient's Lab Results:: I have reviewed the patient's lab results. - Vital Signs Patient's Vital Signs:: I have reviewed the patient's vital signs. Vital Signs: Vital Signs 06/13/17 07:04 Temperature 36.2 C L Pulse Rate 84 Respiratory 12 Rate Blood Pressure 139/90 O2 Sat by Pulse 96 Oximetry - Progress/Reassessment Chief Complaint: Genitourinary Problem Progress Note-Subjective: 06/13/17 07:25 offered patient pain meds, patient declined 06/13/17 08:15 discussed lab results with patient, as negative test no ultrasound needed in the ER discussed need to use protection and call [facility] for follow up Departure Clinical Impression: Pelvic pain - Departure Disposition: Home self-care Condition: Good Instructions: Pelvic Pain, Female, [id number], Form - Excuse from Work, School, or Physical Activity Additional Instructions: you might be ready to start your period or have an ovarian cyst, take ibuprofen as needed for pain and call your doctor today for a follow up appointment for the pain as well as to discuss control, use condoms till you get started on something else Referrals: Bobby Murrell DO [Staff Physician] -
[2017-06-13 07:35] LABS: Hematocrit 39.9 % (37.0-47.0); Hemoglobin 13.6 gm/dL (12.5-16.0); Mean Cell Volume 87.1 fl (78-100); Mean Corpuscular Hemoglobin 29.7 pg (27-31); Mean Corpuscular Hgb Conc 34.1 g/dl (32-36); Mean Platelet Volume 10.5 fl (6.0-9.5); Neutrophil # 6.6 K/mm3 (1.3-6.0); Neutrophil % 63.8 % (42-75.0); Platelet Count 326 K/mm3 (150-450); Red Blood Count 4.58 M/mm3 (4.2-5.4); Red Cell Distribution Width 13.3 % (11.5-14.0); White Blood Count 10.4 K/mm3 (4.0-10.5)
[2017-06-13 08:02] LABS: Albumin * 3.5 gm/dl (3.4-5.0); Anion Gap 15.3 mmol/L (6.8-13.8); BUN/Creatinine Ratio 17.1 (9.0-21.6); Bilirubin, Total 0.4 mg/dL (0.0-1.1); Ca. Corrected For Albumin 8.8 mg/dL (8.4-10.2); Calcium * 8.7 mg/dL (7.9-10.9); Carbon Dioxide 24.7 mmol/L (24-32.6); Total Protein 7.7 gm/dL (6.2-8.2)
[2017-06-13] MEDS ORDERED: IBUPROFEN 600 MG TABLET PO ONE (08:15)
[2017-06-13] MEDS ORDERED: IBUPROFEN 600 MG TABLET ONE (08:21)
[2017-06-13 08:23] VITALS: BP 136/84
[2017-06-13 08:30] LABS: Urine Bilirubin Negative (NEGATIVE); Urine Blood Negative /ul (NEGATIVE); Urine Ketone Negative (NEGATIVE); Urine Nitrite Negative (NEGATIVE); Urine Protein Negative (NEGATIVE); Urine Urobilinogen Normal (NORMAL)
[2017-06-13 08:41] LABS: Urine Appearance Clear; Urine Bacteria None Seen; Urine Color Yellow; Urine RBC None Seen /hpf (0-5); Urine WBC None Seen /hpf (0-5)
== END 2017-06-13 08:24 | disposition home or self-care (01) ==
LOC: ER 06:59
DX: R10.2 Pelvic and perineal pain (principal); E11.9 Type 2 diabetes mellitus without complications; Z53.29 Procedure and treatment not carried out because of patient's decision for other reasons